=== PATIENT | male | born 1970 | race Caucasian/White ===

== ENCOUNTER 2017-10-02 12:45 | Day surgery (SDC) | payer OTHER ==
[2017-10-02] MEDS ORDERED: PROPOFOL 60 ML (14:44)
[2017-10-02] MEDS ORDERED: LIDOCAINE 2% (SDV) 5 ML INJ (14:44)
== END 2017-10-02 16:03 | disposition home or self-care (01) ==
LOC: GIL 12:45
DX: Z12.11 Encounter for screening for malignant neoplasm of colon (principal); Z86.010 Personal history of colon polyps; K29.70 Gastritis, unspecified, without bleeding; K44.9 Diaphragmatic hernia without obstruction or gangrene; I10 Essential (primary) hypertension; E66.01 Morbid (severe) obesity due to excess calories; Z68.41 Body mass index [BMI] 40.0-44.9, adult
CPT/HCPCS: 43239; 88305; 88312